=== PATIENT | female | born 1970 | race Caucasian/White ===

== ENCOUNTER → 2016-07-17 | Outpatient (CLI) | payer BC ==
[2016-07-17 12:34] LABS: BASOPHILS % (AUTO) 0.2 % (0.0-2.0); EOSINOPHILS # (AUTO) 0.1 /CMM (0.0-0.7); EOSINOPHILS % (AUTO) 0.8 % (0.0-6.0); HEMATOCRIT 44 % (33-45); HEMOGLOBIN 14.4 g/dL (11.5-14.8); LYMPHOCYTES # (AUTO) 1.4 /CMM (0.8-4.8); LYMPHOCYTES % (AUTO) 17.1 % (20.0-44.0); MEAN CORPUSCULAR HEMOGLOBIN 30 PG (26.0-33.0); MEAN CORPUSCULAR HGB CONC 33 g/dl (31.0-36.0); MEAN CORPUSCULAR VOLUME 92 fL (82-100); MONOCYTES # (AUTO) 0.8 /CMM (0.1-1.30); MONOCYTES % (AUTO) 9.4 % (2.0-12.0); NEUTROPHILS % (AUTO) 72.5 % (43.0-81.0); PLATELET COUNT (AUTO) 248 /CMM (150-450); RDW COEFFICIENT OF VARIATION 12.8 (11.5-15.0); RED BLOOD CELL COUNT(AUTO) 4.74 MIL/uL (4.0-5.2); WHITE BLOOD COUNT (AUTO) 8.3 K/uL (4.3-11.0)
[2016-07-17 12:48] LABS: ALBUMIN 3.7 g/dL (3.4-5.0); BILIRUBIN,TOTAL 0.5 mg/dL (0.2-1.0); CALCIUM, SERUM 8.2 mg/dL (8.5-10.1); CREATININE 0.7 mg/dL (0.6-1.3); MAGNESIUM 1.8 mg/dL (1.8-2.4); POTASSIUM 3.6 mmol/L (3.5-5.1); TOTAL PROTEIN, SERUM 7.4 g/dL (6.4-8.2)
[2016-07-17 12:57] LABS: THYROID STIMULATING HORMONE 1.522 uIU/mL (0.358-3.74)
[2016-07-18 08:10] LABS: FOLLICLE STIMULATION HORMONE 4.2 mIU/mL (.); PROLACTIN 11.3 ng/mL (4.8-23.3)
[2016-07-18 08:10] LABS: *RAPID PLASMA REAGIN QUAL Non Reactive (Non Reactive)
== END | disposition home or self-care (01) ==
LOC: LAB 11:05
PROVIDERS: ATTEND Internal Medicine Interventional Cardiology
DX: E03.9 Hypothyroidism, unspecified (principal); E27.49 Other adrenocortical insufficiency
CPT/HCPCS: 36415; 80053-TC; 80061-TC; 80074; 82533; 83001; 83735-TC; 84146; 84439-TC; 84443-TC; 85025-TC; 86592

== ENCOUNTER 2017-01-05 00:11 | Emergency (ER) | payer SELFPAY ==
[~2017-01-05] VITALS: Ht 165.1 cm; Wt 77.1 kg
--- NOTE | 2017-01-05 00:30 | NUR ---
PT CAME WITH COMPLAINTS OF CONGESTION AND COUGHING X1 MONTH. VITALS WNL. O2 SAT 98% ON ROOM AIR. DENIES PAIN. AWAITING TO BE SEEN MY MD.
[2017-01-05 02:03] VITALS: BP 128/78
== END 2017-01-05 01:03 | disposition home or self-care (01) ==
LOC: ER 00:13
DX: R05 Cough (principal); Z88.8 Allergy status to other drugs, medicaments and biological substances
CPT/HCPCS: 71010; 99283; A4606; Z7610